=== PATIENT | female | born 1930 | race Caucasian/White ===

== ENCOUNTER 2016-10-25 15:31 | Emergency (ER) | payer OTHER ==
[~2016-10-25] VITALS: Ht 165.1 cm; Wt 81.2 kg
[~2016-10-25 15:31] MED LIST: ACETAMINOPHEN-1 EAC1 PO; ADULT LOW DOSE81 MG PO; ALBUTEROL NEB INH; ASTELIN30 ML NS; ATENOLOL 50 MG50 M1 PO; BENICAR40 MG PO; BYSTOLIC10 MG PO; CADUET 5 MG-101 EACH PO; CARDIZEM CD180 MG PO; CARDIZEM CD240 MG PO; COUMADIN 5 MG TA5 M1 PO; DIGITEK250 MCG PO; DOXYCYCLINE 10100 MG PO; FISHOIL; GARAMYCIN5 ML; GENTAMICIN 0.1%15 G2 TOP; K-DUR10 ME1 PO; KEFLEX500 MG PO; LASIX 40 MG TAB40 M1 PO; LEVOTHYROXIN0.025 MG PG; MULTAQ400 MG PO; OXYBUTYNIN; OXYBUTYNIN ER 55 MG PO; POTASSIUM CHLO10 MEQ PO; PROCTOSOL TOP; QUESTRAN PACKET4 GM PO; QVAR HFA 880 MCG/UN1 INH; RESTASIS1 EACH IO; SOTALOL 120 MG120 MG PO; TENORMIN100 MG PO; TOPROL XL25 MG PO; VENTOLIN HFA 1818 GM INH; ZOCOR 20 MG TAB20 M1 PO
[2016-10-25] MEDS ORDERED: AMLODIPINE BESYL5 M1 PO (15:49)
[2016-10-25] MEDS ORDERED: PREVALITE PACKE1 PKT PG (15:50)
[2016-10-25] MEDS ORDERED: TRAMADOL 50 MG50 MG PO (15:51)
[2016-10-25] MEDS ORDERED: RESTASIS1 EACH OPHTHALMIC (15:52)
[2016-10-25] MEDS ORDERED: COUMADIN7.5 MG PO (15:53)
== END 2016-10-25 16:58 | disposition home or self-care (01) ==
LOC: ER 15:31
DX: S81.811A Laceration without foreign body, right lower leg, initial encounter (principal); G56.00 Carpal tunnel syndrome, unspecified upper limb; I48.91 Unspecified atrial fibrillation; I10 Essential (primary) hypertension; G89.4 Chronic pain syndrome; H35.30 Unspecified macular degeneration; Z95.1 Presence of aortocoronary bypass graft; Z90.89 Acquired absence of other organs; Z88.8 Allergy status to other drugs, medicaments and biological substances; Z88.0 Allergy status to penicillin; Z88.2 Allergy status to sulfonamides; Z91.041 Radiographic dye allergy status; Z87.891 Personal history of nicotine dependence; W45.8XXA Other foreign body or object entering through skin, initial encounter; Y93.89 Activity, other specified; Y92.89 Other specified places as the place of occurrence of the external cause; Y99.9 Unspecified external cause status

== ENCOUNTER → 2017-02-05 | Outpatient (CLI) | payer OTHER ==
[~2017-02-05] MED LIST changes: +AMLODIPINE BESYL5 M1 PO; +COUMADIN7.5 MG PO; +PREVALITE PACKE1 PKT PG; +RESTASIS1 EACH OPHTHALMIC; +TRAMADOL 50 MG50 MG PO
== END ==
LOC: HYPER 07:25
DX: I87.303 Chronic venous hypertension (idiopathic) without complications of bilateral lower extremity (principal); R60.9 Edema, unspecified; I48.0 Paroxysmal atrial fibrillation; H35.30 Unspecified macular degeneration; J45.909 Unspecified asthma, uncomplicated; I11.0 Hypertensive heart disease with heart failure; I50.9 Heart failure, unspecified; K21.9 Gastro-esophageal reflux disease without esophagitis; M19.90 Unspecified osteoarthritis, unspecified site; M10.9 Gout, unspecified; Z86.73 Personal history of transient ischemic attack (TIA), and cerebral infarction without residual deficits; Z87.891 Personal history of nicotine dependence

== ENCOUNTER → 2017-02-19 | Outpatient (CLI) | payer OTHER | LOC: HYPER 07:03 | DX: I87.303 Chronic venous hypertension (idiopathic) without complications of bilateral lower extremity (principal); R60.9 Edema, unspecified; I11.0 Hypertensive heart disease with heart failure; I50.9 Heart failure, unspecified; E78.5 Hyperlipidemia, unspecified; K21.9 Gastro-esophageal reflux disease without esophagitis; M19.90 Unspecified osteoarthritis, unspecified site; Z86.73 Personal history of transient ischemic attack (TIA), and cerebral infarction without residual deficits ==

== ENCOUNTER → 2017-03-13 | Outpatient (CLI) | payer OTHER ==
--- NOTE | ~2017-03-13 | 2DMMODE ---
[facility] [address] [place] [address] 2 D/M-MODE ECHOCARDIOGRAM Name: PAOLA RAMÍREZ [id number] Admission: 03/13/17 Attend Phys: Russel Martines Discharge: Date of : 28 Date of Service: 03/13/17 1443 Report #: [id number] THIS REPORT FOR: //name// APPROVED REPORT Study performed: 03/13/2017 13:14:35 EXAM: Comprehensive 2D, Doppler, and color-flow Echocardiogram Patient Location: Out-Patient Room #: Echo lab Status: routine BSA: 1.88 HR: 70 bpm BP: 158/92 mmHg Other Information Study Quality: Good Indications Pulmonary Hypertension Atrial Fibrillation Pacemaker Hypertension/HDD 2D Dimensions RVDd: 34.63 mm LVEF(%): 60.79 (>50%) IVSd: 14.48 (7-11mm) LVOT Diam: 19.56 (18-24mm) LVDd: 47.31 mm PWd: 13.70 (7-11mm) Ascending Ao: 32.36 (22-36mm) LVDs: 31.94 (25-40mm) Aortic Root: 29.01 mm IVC: 26.00 mm Lanza's LVEF: 60.79 % Volumes Left Atrial Volume (Systole) Single Plane 4CH: 160.15 mL Single Plane 2CH: 187.65 mL LA ESV Index: 99.00 mL/m2 Aortic Valve AoV Peak Samuel.: 3.06 m/s AO Peak Gr.: 37.53 mmHg LVOT Max P.19 mmHg AO Mean Gr.: 23.49 mmHg LVOT Mean P.35 mmHg AO V2 Mean: 2.28 m/s LVOT Max V: 1.02 m/s AO V2 VTI: 72.81 cm LVOT Mean V: 0.71 m/s MAGDIEL (VTI): 1.01 cm2 LVOT V1 VTI: 24.40 cm [facility] [place] [address] 2 D/M-MODE ECHOCARDIOGRAM Name: PAOLA RAMÍREZ Room #: [facility]#: [id number] Admission: 03/13/17 Attend Phys: Russel Martines Discharge: Date of : 28 Date of Service: 03/13/17 1443 Report #: [id number] MAGDIEL Vmax: 1.00 cm2 AI Vmax: 4.62 m/s SV (LVOT): 73.26 mL AI Leake: 3.44 m/s2 AI PHT: 392.52 ms Mitral Valve MV Peak Gr.: 12.81 mmHg MV Mean Gr.: 3.97 mmHg MV Decel. Time: 200.66 ms MV E Max Samuel.: 1.71 m/s MV Max Samuel.: 1.78 m/s MV Mean Samuel.: 0.87 m/s MV VTI: 382.35 mm MVA VTI: 191.62 mm2 MV PHT: 59.29 ms MVA (PHT): 3.71 cm2 IVRT: 92.27 ms Pulmonary Valve PV Peak Samuel.: 0.95 m/s PV Peak Gr.: 3.62 mmHg Tricuspid Valve TR Peak Samuel.: 2.88 m/s TR Peak Gr.: 33.16 mmHg PA Pressure: 48.00 mmHg Left Ventricle The left ventricle is normal size. Mild to moderate concentric left ventricular hypertrophy. The left ventricular systolic function is normal. The left ventricular ejection fraction is within the normal range. LVEF is 60-65%. This study is not technically sufficient to allow evaluation of the LV diastolic function. Right Ventricle The right ventricle is normal size. The right ventricular systolic function is normal. Pacemaker lead is present in the right ventricle. Atria Left atrium is dilated. Right atrium is dilated. Pacemaker lead is present in the right atrium. Aortic Valve The aortic valve is normal in structure. Aortic valve is calcified. Moderate aortic regurgitation. Moderate aortic stenosis. Mitral Valve [facility] [address] [place] [address] 2 D/M-MODE ECHOCARDIOGRAM Name: PAOLA RAMÍREZ Room #: [facility] [id number] Admission: 03/13/17 Attend Phys: Russel Martines Discharge: Date of : 28 Date of Service: 03/13/17 1443 Report #: [id number] The mitral valve is normal in structure. There is mitral annular calcification. Mitral valve leaflets are calcified. Moderate to severe mitral regurgitation with an eccentric jet Mild mitral stenosis. Tricuspid Valve The tricuspid valve is normal in structure. Mild to moderate tricuspid regurgitation. Pulmonic Valve The pulmonary valve is normal in structure. Trace pulmonic regurgitation. Great Vessels The aortic root is normal in size. The inferior vena cava is dilated with no inspiratory collapse. Pericardium There is no pericardial effusion. <Conclusion> The left ventricle is normal size. LVEF is 60-65%. Left atrium is dilated. Right atrium is dilated. Pacemaker lead is present in the right atrium. The aortic valve is normal in structure. Aortic valve is calcified. Moderate aortic regurgitation. Moderate aortic stenosis. The mitral valve is normal in structure. There is mitral annular calcification. Mitral valve leaflets are calcified. Moderate to severe mitral regurgitation with an eccentric jet Mild mitral stenosis. The pulmonary valve is normal in structure. Trace pulmonic regurgitation. <ELECTRONICALLY SIGNED> By: Eddie Garcia MD 03/13/17 1443 1443 144 Eddie Garcia MD /INF
== END ==
LOC: CV 12:58
DX: I48.91 Unspecified atrial fibrillation (principal); I27.20 Pulmonary hypertension, unspecified

== ENCOUNTER → 2017-09-05 | Outpatient (CLI) | payer OTHER | LOC: RAD 14:20 | DX: I51.7 Cardiomegaly (principal); R05 Cough; R91.8 Other nonspecific abnormal finding of lung field ==

== ENCOUNTER → 2018-04-10 | Outpatient (CLI) | payer OTHER | LOC: RAD 01:07 | DX: Z12.31 Encounter for screening mammogram for malignant neoplasm of breast (principal) ==

== ENCOUNTER → 2018-09-01 | Outpatient (CLI) | payer OTHER ==
[2018-09-01 12:49] LABS: CREATININE 1.1 mg/dL (0.6-1.0)
== END ==
LOC: LAB 12:08
PROVIDERS: Nurse Practitioner
DX: K40.90 Unilateral inguinal hernia, without obstruction or gangrene, not specified as recurrent (principal); K59.00 Constipation, unspecified; M47.816 Spondylosis without myelopathy or radiculopathy, lumbar region; J98.4 Other disorders of lung; I70.0 Atherosclerosis of aorta

== ENCOUNTER → 2018-09-11 | Outpatient (CLI) | payer OTHER | LOC: CAT 07:43 | DX: K59.00 Constipation, unspecified (principal); M47.816 Spondylosis without myelopathy or radiculopathy, lumbar region; I51.7 Cardiomegaly; N28.1 Cyst of kidney, acquired ==

== ENCOUNTER → 2018-09-22 | Outpatient (CLI) | payer OTHER ==
[~2018-09-22] VITALS: Ht 165.1 cm; Wt 79.4 kg
[~2018-09-22] MED LIST changes: +AMLODIPINE BESY10 MG PO; +CALCIUM 600 +1 EAC1 PO; +FISH OIL 1,001000 M2 PO; +LOSARTAN POTAS100 MG PO; +LUTEIN6 M1 PO; +MUCINEX1200 MG PO; +REFRESH OPTIVE1 EACH OPHTHALMIC; +VITAMIN C500 M2 PO; +ZINC50 M1 PO; +ZOCOR20 MG PO
[2018-09-22 09:22] LABS: PROTIME 10.9 Seconds (9.3-11.4)
--- NOTE | 2018-09-23 16:19 | P ---
[facility] [place] [address] [place] [address] PROCEDURE REPORT Name: PAOLA RAMÍREZ Josh Room #: REG [facility]#: [id number] Admission: 09/22/18 ������������������ Attend Phys: Darrion Salas MD Discharge: ������������������ Date of : 28 Report #: [id number] THIS REPORT FOR: //name// CC: Darrion Ware MD BRIEF HISTORY: The patient is an 87-year-old woman with multiple recent abnormalities on CT. She has a nodular appearing liver, raising the possibility of cirrhosis. There is no history to support a diagnosis of cirrhosis. She also has a thickened pylorus on the CT. In addition, there is a low density area in the head of the pancreas of uncertain etiology. PREOPERATIVE DIAGNOSIS: Abnormal CT of the pylorus, pancreas and liver. POSTOPERATIVE DIAGNOSES: Moderate erosive antral gastritis. MEDICATIONS: Deep sedation with propofol per Anesthesia. SPECIMEN: Biopsies of gastritis. ESTIMATED BLOOD LOSS: 3 mL. PROCEDURE: EGD with biopsy. FINDINGS: Prior to propofol sedation, procedure of upper endoscopy discussed with the patient as well as potential risks and its complications. She indicates she understands and desires to proceed. DESCRIPTION OF PROCEDURE: With the patient in left lateral decubitus position, the Olympus video endoscope was inserted in the cervical esophagus under direct vision without difficulty. Examination of this organ through its entire length revealed normal esophageal mucosa down to the squamocolumnar junction. The squamocolumnar junction was inspected and noted to be unremarkable. No ulcers or erosions were seen. In addition, there is no endoscopic evidence of esophageal varices. The scope was advanced into the stomach, was examined on end view as well as retroflexed views. Examination of the antrum revealed multiple erosions. No ulcers were seen. There is no evidence of stricturing or mass effect. The pylorus looked completely normal. Multiple biopsies obtained of the antrum. The mucosa of the antrum was otherwise smooth and intact and had a benign appearance. The proximal stomach, was examined on end view as well as retroflexed views. The mucosa was intact. No ulcers or erosions were seen. The scope was advanced in the duodenum and the duodenal sweep was examined down to the third portion. The mucosa was normal. No mass lesions were seen. The papilla was identified. It was completely normal. There is no evidence of a periampullary mass to give an abnormal appearance of the head of the pancreas. At that point, the scope was slowly withdrawn and careful circumferential views [facility] [address] [place] [address] PROCEDURE REPORT Name: PAOLA RAMÍREZ Room #: REG CL Darren#: [id number] Admission: 09/22/18 ������������������ Attend Phys: Darrion Salas MD Discharge: ������������������ Date of : 28 Report #: [id number] confirmed the above findings. The patient tolerated the procedure well. CONDITION OF THE PATIENT UPON DISCHARGE: Following the procedure, the patient drowsy. She will be discharged home when fully ambulatory. INSTRUCTIONS TO THE PATIENT AND FAMILY AT THE TIME OF DISCHARGE: We will follow up on biopsies of the small bowel, which were obtained today to evaluate for celiac disease in view of her history of chronic diarrhea. She will continue her Prevalite. Also, follow up on biopsy of the antrum of the stomach. I do not see any neoplastic process involving the pylorus. As far as pancreatic lesion, no masses were seen in the duodenum or periampullary papilla. Therefore, we will make arrangements for have an endoscopic ultrasound to evaluate the head of the pancreas as well as thickening of the pylorus and potentially the liver. Since she has erosive changes of the antrum and she is on anticoagulation with warfarin, we will have her start omeprazole 20 mg daily. I believe she does take an aspirin daily. Advised her to be cautious with nonsteroidals. She is return to see me in followup in mid October. She will otherwise return to care of Dr. Clif Ware. ��������������������������������������������� <ELECTRONICALLY SIGNED> ���������������������������������������� By: Darrion Salas MD ��������������������������������������������� 09/23/18 1619 1001 2150 Darrion Salas MD /nt
--- NOTE | 2018-09-23 17:06 | PATH ---
[facility] [address] [place] [address] PATHOLOGY RPT PROCEDURE Name: LEE RAMÍREZ Josh Room #: REG [facility]arley Vigil.#: [id number] ������������������ Admission: 09/22/18 ������������������ Date of : 28 Discharge: Report #: [id number] Path Case #: [id number] [facility] Accession Number: [id number] . 01 Material submitted: . PART A: small bowel - BX SMALL BOWEL R/O CELIAC DZ HX DIARRHEA PART B: stomach - BX GASTRITIS ANTRUM OF STOMACH R/O H PYLORI . 01 Clinical history: . Pre-OP DX: Abnormal CT scan Post-OP DX: Erosive gastritis . 02 Diagnosis: A. Small bowel mucosa, small bowel, rule out celiac disease, endoscopic biopsy: - No diagnostic abnormalities. - Negative for villous blunting or increase in intraepithelial lymphocytes. . B. Gastric mucosa, gastritis antrum of stomach, rule out H. pylori, endoscopic biopsy: - Mild chronic gastritis with features of reactive gastropathy. - Negative for intestinal metaplasia or atrophy. - Negative for Helicobacter pylori (properly controlled immunohistochemical stain performed). (IUV:pit 09/23/2018) QTP/09/23/2018 . 02 Electronically signed: . lEisa Bell MD, Pathologist NPI- [id number] . 01 Gross description: . A. Received in formalin labeled "Lee Ramírez, small bowel BX, rule out celiac dry, Hx diarrhea," are 5 segments of dudley soft tissue measuring 1.5 x 0.9 x 0.2 cm in aggregate dimensions and ranging from 0.3 to 0.6 cm in maximum dimension. The specimen is submitted entirely in cassette A1. . B. Received in formalin labeled "Lee Ramírez, BX gastritis, antrum of stomach, rule out H. pylori," are 4 segments of dudley soft tissue measuring 1.4 x 0.9 x 0.3 cm in aggregate dimensions and ranging from 0.4 to 0.6 cm in maximum dimension. The specimen is submitted entirely in cassette B1. (TSD; 09/22/2018) TOB/TOB . 02 Pathologist provided ICD-10: K29.50, K31.9 [place] [address] PATHOLOGY RPT PROCEDURE Name: LEE RAMÍREZ Room #: REG [facility] Banks#: [id number] ������������������ Admission: 09/22/18 ������������������ Date of : 28 Discharge: Report #: [id number] Path Case #: [id number] . 02 CPT . 478120, [id number], [id number] Specimen Comment: A courtesy copy of this report has been sent to Specimen Comment: [phone], . Specimen Comment: Report sent to / DR JENNINGS Performed at: [address], [place], [place] [id number] MD Colin Henderson MD Phone: [phone] Performed at: [address] [id number] MD Elisa Bell MD Phone: [phone]
== END | disposition home or self-care (01) ==
LOC: GI 08:29
PROVIDERS: Specialist
DX: K29.50 Unspecified chronic gastritis without bleeding (principal); K31.9 Disease of stomach and duodenum, unspecified; I11.0 Hypertensive heart disease with heart failure; I50.9 Heart failure, unspecified; I48.91 Unspecified atrial fibrillation; G89.4 Chronic pain syndrome; G47.33 Obstructive sleep apnea (adult) (pediatric); J45.909 Unspecified asthma, uncomplicated; Z98.41 Cataract extraction status, right eye; Z98.42 Cataract extraction status, left eye; Z95.0 Presence of cardiac pacemaker; Z87.891 Personal history of nicotine dependence; Z87.19 Personal history of other diseases of the digestive system; Z79.01 Long term (current) use of anticoagulants; Z98.890 Other specified postprocedural states; Z79.899 Other long term (current) drug therapy; Z88.0 Allergy status to penicillin; Z88.2 Allergy status to sulfonamides; Z91.041 Radiographic dye allergy status; Z79.82 Long term (current) use of aspirin
CPT/HCPCS: 62110; 62900

== ENCOUNTER → 2018-10-20 | Outpatient (CLI) | payer OTHER | LOC: HYPER 06:40 | DX: S80.811D Abrasion, right lower leg, subsequent encounter (principal); I87.303 Chronic venous hypertension (idiopathic) without complications of bilateral lower extremity; I48.0 Paroxysmal atrial fibrillation; H35.30 Unspecified macular degeneration; I63.59 Cerebral infarction due to unspecified occlusion or stenosis of other cerebral artery; L84 Corns and callosities; I11.0 Hypertensive heart disease with heart failure; I50.9 Heart failure, unspecified; R60.9 Edema, unspecified; K21.9 Gastro-esophageal reflux disease without esophagitis; M19.90 Unspecified osteoarthritis, unspecified site; M10.9 Gout, unspecified; J45.909 Unspecified asthma, uncomplicated; F41.9 Anxiety disorder, unspecified; Z86.73 Personal history of transient ischemic attack (TIA), and cerebral infarction without residual deficits; Z79.01 Long term (current) use of anticoagulants; Z87.891 Personal history of nicotine dependence; X58.XXXD Exposure to other specified factors, subsequent encounter ==

== ENCOUNTER → 2018-11-18 | Outpatient (CLI) | payer OTHER ==
--- NOTE | 2018-11-18 12:40 | 2DMMODE ---
[facility] [place] [address] [place] [address] 2 D/M-MODE ECHOCARDIOGRAM Name: PAOLA RAMÍREZ [facility] [id number] ������������� Admission: 11/18/18 ������������� Attend Phys: Russel Martines Discharge: ��� ������������� ��� Date of : 28 Date of Service: 11/18/18 1240 �� Report #: [id number] �������� ��������������������������������������������[id number] THIS REPORT FOR: //name// APPROVED REPORT Study performed: 11/18/2018 10:54:54 EXAM: Comprehensive 2D, Doppler, and color-flow Echocardiogram Patient Location: Out-Patient Status: routine BSA: 1.85 HR: 70 bpm BP: 140/80 mmHg Rhythm: Pacemaker Other Information Study Quality: Adequate Indications Aortic stenosis. Hx: Pacemaker. 2D Dimensions RVDd: 25.75 mm IVSd: 12.00 (7-11mm) LVOT Diam: 19.53 (18-24mm) LVDd: 50.26 mm PWd: 12.00 (7-11mm) Ascending Ao: 33.89 (22-36mm) LVDs: 37.26 (25-40mm) Aortic Root: 30.43 mm Volumes Left Atrial Volume (Systole) Single Plane 4CH: 134.60 mL Single Plane 2CH: 147.99 mL LA ESV Index: 81.00 mL/m2 Aortic Valve AoV Peak Samuel.: 3.34 m/s AO Peak Gr.: 44.74 mmHg LVOT Max P.02 mmHg AO Mean Gr.: 26.29 mmHg AO V2 Mean: 2.43 m/s LVOT Max V: 1.00 m/s AO V2 VTI: 71.79 cm MAGDIEL Vmax: 0.90 cm2 Mitral Valve MV Decel. Time: 156.[address] [facility] [place] [address] 2 D/M-MODE ECHOCARDIOGRAM Name: PAOLA RAMÍREZ Room #: [facility]#: [id number] ������������� Admission: 11/18/18 ������������� Attend Phys: Russel Martines Discharge: ��� ������������� ��� Date of : 28 Date of Service: 11/18/18 1240 �� Report #: [id number] �������� ��������������������������������������������[id number] MV E Max Samuel.: 1.68 m/s Pulmonary Valve PV Peak Samuel.: 0.93 m/s PV Peak Gr.: 3.44 mmHg Tricuspid Valve TR Peak Samuel.: 3.05 m/s RAP Estimate: 10.00 mmHg TR Peak Gr.: 37.30 mmHg PA Pressure: 47.00 mmHg Left Ventricle The left ventricle is normal size. There is normal LV segmental wall motion. Mild concentric left ventricular hypertrophy. Left ventricular systolic function is normal. LVEF is 55-60%. This study is not technically sufficient to allow evaluation of the LV diastolic function. Right Ventricle The right ventricle is normal size. The right ventricular systolic function is normal. Pacemaker lead is present in the right ventricle. Atria Left atrium is massively dilated. Right atrium is moderately dilated. Aortic Valve Aortic valve is moderately calcified. Mild to moderate aortic regurgitation. There is moderate valvular aortic stenosis. Calculated aortic valve area is 0.9 cm2 with maximum pressure gradient of 45 mmHg and mean pressure gradient of 28 mmHg. Mitral Valve Mitral valve leaflets are moderately thickened. Moderate mitral annular calcification. Severe mitral regurgitation. Tricuspid Valve The tricuspid valve is normal in structure. Moderate tricuspid regurgitation. Estimated PAP is 45-50mmHg. Pulmonic Valve Pulmonic valve is not well visualized. Trace pulmonic regurgitation. Great Vessels The aortic root is normal in size. The ascending aorta is normal in size. IVC is dilated and collapses <50% with [facility] [address] [place] [address] 2 D/M-MODE ECHOCARDIOGRAM Name: DESIREEPAOLA Josh Room #: REG Darren#: [id number] ������������� Admission: 11/18/18 ������������� Attend Phys: [facility] Discharge: ��� ������������� ��� Date of : 28 Date of Service: 11/18/18 1240 �� Report #: [id number] �������� ��������������������������������������������[id number] inspiration. Pericardium There is no pericardial effusion. <Conclusion> The left ventricle is normal size. LVEF is 55-60%. The right ventricular systolic function is normal. Pacemaker lead is present in the right ventricle. Left atrium is massively dilated. Right atrium is moderately dilated. Aortic valve is moderately calcified. Mild to moderate aortic regurgitation. There is moderate valvular aortic stenosis. Calculated aortic valve area is 0.9 cm2 with maximum pressure gradient of 45 mmHg and mean pressure gradient of 28 mmHg. Mitral valve leaflets are moderately thickened. Moderate mitral annular calcification. Severe mitral regurgitation. The tricuspid valve is normal in structure. Moderate tricuspid regurgitation. Estimated PAP is 45-50mmHg. Pulmonic valve is not well visualized. Trace pulmonic regurgitation. There is no pericardial effusion. ��������������������������������������������� <ELECTRONICALLY SIGNED> ���������������������������������������� By: Eddie Garcia MD ��������������������������������������������� 11/18/18 1240 1240 1240 Eddie Garcia MD /INF
== END ==
LOC: CV 10:39 → NUC 13:56
DX: I08.3 Combined rheumatic disorders of mitral, aortic and tricuspid valves (principal); Z95.0 Presence of cardiac pacemaker

== ENCOUNTER → 2019-04-16 | Outpatient (CLI) | payer OTHER | LOC: RAD 02:59 | DX: Z12.31 Encounter for screening mammogram for malignant neoplasm of breast (principal) ==

== ENCOUNTER → 2019-06-11 | Outpatient (CLI) | payer OTHER | LOC: SJCVC 10:51 | DX: Z51.81 Encounter for therapeutic drug level monitoring (principal); I10 Essential (primary) hypertension; I48.21 Permanent atrial fibrillation; E03.9 Hypothyroidism, unspecified; E78.00 Pure hypercholesterolemia, unspecified; Z79.01 Long term (current) use of anticoagulants; Z86.73 Personal history of transient ischemic attack (TIA), and cerebral infarction without residual deficits ==

== ENCOUNTER → 2019-06-23 | Outpatient (CLI) | payer OTHER | LOC: SJCVC 10:38 | DX: Z45.018 Encounter for adjustment and management of other part of cardiac pacemaker (principal); R94.31 Abnormal electrocardiogram [ECG] [EKG]; I49.5 Sick sinus syndrome; I48.92 Unspecified atrial flutter; I48.91 Unspecified atrial fibrillation; I44.2 Atrioventricular block, complete; I35.0 Nonrheumatic aortic (valve) stenosis; I10 Essential (primary) hypertension; Z79.82 Long term (current) use of aspirin; Z79.899 Other long term (current) drug therapy; Z87.891 Personal history of nicotine dependence ==

== ENCOUNTER → 2019-07-09 | Outpatient (CLI) | payer OTHER | LOC: SJCVC 10:08 | DX: Z51.81 Encounter for therapeutic drug level monitoring (principal); I48.91 Unspecified atrial fibrillation; E78.00 Pure hypercholesterolemia, unspecified; I10 Essential (primary) hypertension; E03.9 Hypothyroidism, unspecified; E78.5 Hyperlipidemia, unspecified; I25.10 Atherosclerotic heart disease of native coronary artery without angina pectoris; Z79.01 Long term (current) use of anticoagulants; Z95.0 Presence of cardiac pacemaker ==

== ENCOUNTER → 2019-08-06 | Outpatient (CLI) | payer OTHER | LOC: SJCVC 10:12 | DX: Z51.81 Encounter for therapeutic drug level monitoring (principal); I48.21 Permanent atrial fibrillation; E03.9 Hypothyroidism, unspecified; G47.33 Obstructive sleep apnea (adult) (pediatric); I10 Essential (primary) hypertension; E78.00 Pure hypercholesterolemia, unspecified; K59.00 Constipation, unspecified; Z68.30 Body mass index [BMI] 30.0-30.9, adult; Z79.01 Long term (current) use of anticoagulants; Z86.73 Personal history of transient ischemic attack (TIA), and cerebral infarction without residual deficits ==

== ENCOUNTER → 2019-08-13 | Outpatient (CLI) | payer OTHER | LOC: SJCVC 10:14 | DX: Z51.81 Encounter for therapeutic drug level monitoring (principal); I48.21 Permanent atrial fibrillation; E03.9 Hypothyroidism, unspecified; I10 Essential (primary) hypertension; E78.5 Hyperlipidemia, unspecified; Z95.0 Presence of cardiac pacemaker; Z79.01 Long term (current) use of anticoagulants ==

== ENCOUNTER → 2019-09-10 | Outpatient (CLI) | payer OTHER | LOC: SJCVC 10:01 | DX: E03.9 Hypothyroidism, unspecified (principal); I48.91 Unspecified atrial fibrillation; I10 Essential (primary) hypertension; Z95.0 Presence of cardiac pacemaker; Z87.891 Personal history of nicotine dependence; Z79.01 Long term (current) use of anticoagulants; Z88.0 Allergy status to penicillin; Z88.8 Allergy status to other drugs, medicaments and biological substances ==

== ENCOUNTER → 2019-10-08 | Outpatient (CLI) | payer OTHER | LOC: SJCVC 09:59 | DX: Z51.81 Encounter for therapeutic drug level monitoring (principal); Z87.891 Personal history of nicotine dependence; Z79.01 Long term (current) use of anticoagulants; Z88.0 Allergy status to penicillin; Z88.1 Allergy status to other antibiotic agents; Z88.2 Allergy status to sulfonamides; Z88.8 Allergy status to other drugs, medicaments and biological substances ==